=== PATIENT | female | born 1970 | race American Indian/Alaskan Native ===

== ENCOUNTER 2018-11-24 09:13 | Outpatient (CLI) | payer OTHER | END 2018-11-24 09:14 | disposition home or self-care (01) | LOC: C.VASC 09:13 ==

== ENCOUNTER 2018-12-08 07:34 | Outpatient (CLI) | payer OTHER | END 2018-12-08 07:35 | disposition home or self-care (01) | LOC: C.PAT 07:34 | DX: N18.6 End stage renal disease (principal) ==